=== PATIENT | male | born 1945 | race Caucasian/White ===

== ENCOUNTER 2020-07-29 11:04 | Emergency (ER) | payer OTHER, MEDICAID ==
[~2020-07-29] VITALS: Ht 165.1 cm; Wt 64.0 kg
[~2020-07-29 11:04] MED LIST: ATOR10TA69 PO; DOXA4TAB3 PO; LISI20TA31 PO; MELO-104 PO; [UNRECOGNIZED DRUG - OTHER] PO
[2020-07-29 11:35] LABS: BASOPHILS % 0.4 % (0.0-2.0); EOSINOPHILS % 0.3 % (0.0-5.0); HEMATOCRIT. 38.9 % (42.0-52.0); HEMOGLOBIN. 13.3 g/dL (14.0-18.0); LYMPHOCYTES % 13.7 % (20.0-50.0); MEAN CORPUSCULAR HEMOGLOBIN 30.1 pg (28.0-32.0); MEAN CORPUSCULAR VOLUME 88.1 fL (80.0-94.0); MEAN PLATELET VOLUME 8.5 fl (7.4-10.4); MONOCYTES % 8.1 % (2.0-8.0); NEUTROPHILS % 77.5 % (40.0-76.0); PLATELET 155 x1000/uL (130-400); RED BLOOD CELL COUNT 4.41 mill/uL (4.7-6.1); RED CELL DISTRIBUTION WIDTH 14.2 % (11.6-14.6)
[2020-07-29 11:41] LABS: CHLORIDE 105 mEq/L (98-107)
[2020-07-29 11:45] LABS: PROTHROMBIN TIME 10.6 sec (9.6-11.0)
[2020-07-29 11:48] LABS: ETHANOL BLOOD < 10 mg/dL
[2020-07-29 11:49] LABS: C REACTIVE PROTEIN QUANT 1.9 mg/L (0.0-3.0)
[2020-07-29 12:04] LABS: CREATINE KINASE 1159 IU/L (39-308)
[2020-07-29 13:14] LABS: BG BASE EXCESS 1.1 mmol/L (-2.0-2.0); BG CARBOXYHEMOGLOBIN 0.1 % (0.5-1.5); BG DEOXYHEMOGLOBIN 1.6 % (0.0-5.0); BG FRACTION INSPIRED OXYGEN 28; BG HCO3 ACT 25.5 mmol/L (22.0-26.0); BG METHEMOGLOBIN 0.2 % (0.0-1.5); BG OXYGEN SATURATION 98.4 % (92.0-98.5); BG OXYHEMOGLOBIN 98.1 % (94.0-97.0); BG PCO2 39.8 mmHg (35.0-45.0); BG PH 7.425 (7.350-7.450); BG PO2 116.6 mmHg (75.0-100.0); BG TOTAL HEMOGLOBIN 13.8 g/dL (12.0-18.0); BG VENT MODE NASAL CANNULA
[2020-07-29 13:18] LABS: CLARITY URINE CLEAR (CLEAR); COLOR URINE YELLOW (YELLOW); KETONES URINE NEGATIVE (NEGATIVE); LEUKOCYTE ESTERASE URINE NEGATIVE (NEGATIVE); NITRITE URINE NEGATIVE (NEGATIVE); OCCULT BLOOD URINE NEGATIVE (NEGATIVE); PH URINE 5.5 (4.5-8.0); PROTEIN URINE NEGATIVE (NEGATIVE); SPECIFIC GRAVITY URINE 1.009 (1.005-1.030); UROBILINOGEN URINE 0.2 E.U./dL (0.2-1.0)
[2020-07-29] MEDS ORDERED: SODIUM CHLORIDE 0.9% 1,000 ML IV ONE (13:30)
[2020-07-29 13:45] VITALS: BP 119/66
[2020-07-29] MEDS ORDERED: HALOPERIDOL LACTATE 5MG/ML VIAL IM ONE (14:45)
== END 2020-07-29 14:51 | disposition short-term general hospital (02) ==
LOC: ER 11:26 → EDBEDREQSVC 12:52 → EDBEDREQ 12:52 → EDBEDREQTM 12:52 → ER 14:51 → CANBEDREQ 16:05
DX: M62.82 Rhabdomyolysis (principal); G93.41 Metabolic encephalopathy; R33.9 Retention of urine, unspecified; I10 Essential (primary) hypertension; E78.00 Pure hypercholesterolemia, unspecified; Z86.73 Personal history of transient ischemic attack (TIA), and cerebral infarction without residual deficits; E86.0 Dehydration
CPT/HCPCS: 36415; 36600; 70450; 71045; 80053; 80320; 81003; 82375; 82550; 82728; 82805; 82962; 83605; 83615; 83690; 84145; 84484; 85025; 85384; 85610; 86140; 87040; 87086; 93005; 96360; 96372; 99285; J1630; A4315; G0480